=== PATIENT | female | born 1955 | race Hispanic/Latino ===

== ENCOUNTER 2017-12-22 03:25 | Emergency (ER) | payer OTHER ==
[~2017-12-22] VITALS: Ht 157.5 cm; Wt 99.1 kg
[2017-12-22] MEDS ORDERED: MEDROL DOSEPAK4 MG PO (05:11)
[2017-12-22 05:21] VITALS: BP 120/59
== END 2017-12-22 05:22 | disposition home or self-care (01) ==
LOC: EME 03:25
DX: M79.651 Pain in right thigh (principal)
CPT/HCPCS: 93971; 99281; 99284